=== PATIENT | male | born 1945 | race Caucasian/White ===

== ENCOUNTER 2017-11-17 09:13 | Outpatient (CLI) | payer MEDICARE ==
--- NOTE | 2017-11-18 11:41 | RAD ---
MODIFIED BARIUM SWALLOW IN THE PRESENCE OF SPEECH PATHOLOGIST: HISTORY: Gastroesophageal reflux disease without esophagitis. Dysphagia, oral phase. Hoarseness. Dysphagia, unspecified. COMPARISON: None. TECHNIQUE: Modified barium swallow was performed in the presence of speech pathologist. The patient was adminis tered puree, nectar thick, thin liquid, mechanical soft consistencies. Barium tablet was also admini stered. EXPOSURE: 21 seconds. 0.4 mGy*^m2. FINDINGS: There is premature spillage to the level of the vallecula. No evidence of penetration or aspiration. There is delay in passage of the standard barium tablet at the level of the aortic arch. Consider endoscopy for better interrogation. IMPRESSION: Findings as above. POS: PRISCILA
== END 2017-11-17 09:14 | disposition home or self-care (01) ==
PROVIDERS: ATTEND Otolaryngology Plastic Surgery within the Head & Neck
DX: K21.9 Gastro-esophageal reflux disease without esophagitis (principal); R13.11 Dysphagia, oral phase; R49.0 Dysphonia
CPT/HCPCS: 74230; G8996-GN-CI; G8997-GN-CI; G8998-GN-CI